=== PATIENT | male | born 1950 | race Caucasian/White ===

== ENCOUNTER 2017-06-09 16:09 | Inpatient (IN) | payer MEDICAID ==
[~2017-06-09] VITALS: Ht 165.1 cm; Wt 58.5 kg
[2017-06-09] MEDS ORDERED: PROP20TA18 PO (16:20)
[2017-06-09] MEDS ORDERED: PROZ10 PO (16:20)
[2017-06-09 16:53] LABS: AMPHET/METH SCREEN,URINE NEGATIVE (NEGATIVE); BARBITURATE SCREEN, URINE NEGATIVE (NEGATIVE); BENZODIAZEPINES SCREEN,URINE NEGATIVE (NEGATIVE); CANNABINOID SCREEN,URINE POSITIVE (NEGATIVE); COCAINE SCREEN,URINE NEGATIVE (NEGATIVE); METHADONE SCREEN, URINE NEGATIVE (NEGATIVE); OPIATE SCREEN,URINE NEGATIVE (NEGATIVE)
[2017-06-09 16:58] LABS: PHENCYCLIDINE SCREEN,URINE NEGATIVE (NEGATIVE)
[2017-06-09 17:00] LABS: BASOPHILS % (AUTO) 0.6 % (0.0-2.0); EOSINOPHILS % (AUTO) 2.3 % (1.0-6.0); HEMATOCRIT 42.9 % (41-53); HEMOGLOBIN 14.5 g/dL (13.5-17.5); LYMPHOCYTES # (AUTO) 2.3 K/uL (1.0-4.8); LYMPHOCYTES % (AUTO) 20.4 % (22.0-44.0); MEAN CORPUSCULAR HEMOGLOBIN 32.6 pg (26.0-34.0); MEAN CORPUSCULAR HGB CONC 33.8 G/dL (31.0-37.0); MEAN CORPUSCULAR VOLUME 96 fL (80-100); MONOCYTES # (AUTO) 1.1 K/uL (0.1-1.0); MONOCYTES % (AUTO) 9.3 % (2.0-9.0); NEUTROPHILS # (AUTO) 7.7 K/uL (1.8-7.7); NEUTROPHILS % (AUTO) 67.4 % (40.0-70.0); PLATELET COUNT (AUTO) 460 K/uL (150-450); RED BLOOD CELL COUNT(AUTO) 4.46 MIL/uL (4.50-5.90); RED CELL DISTRIBUTION WIDTH 13.2 % (11.5-14.5)
[2017-06-09 17:09] LABS: ANION GAP 10 mmol/L (8-16); CARBON DIOXIDE 29 mmol/L (22-29); CHLORIDE 99 mmol/L (98-107); CREATININE 0.85 mg/dL (0.60-1.30); GLOMERULAR FILTR. RATE CALC > 60 mL/min (>60); GLUCOSE,RANDOM 95 mg/dL (70-110); POTASSIUM 4.6 mmol/L (3.5-5.1); SODIUM SERUM 138 mmol/L (136-145); UREA NITROGEN, BLOOD 16 mg/dL (7-18)
[2017-06-09 17:15] LABS: ALANINE AMINOTRANSFERASE 32 U/L (12-78); ALBUMIN 3.7 g/dL (3.4-5.0); ALKALINE PHOSPHATASE 101 U/L (46-116); ASPARTATE AMINOTRANSFERASE 15 U/L (15-37); BILIRUBIN,TOTAL 0.4 mg/dL (0.1-1.0); TOTAL PROTEIN, SERUM 7.6 g/dL (6.4-8.2)
[2017-06-09] MEDS ORDERED: HALOPERIDOL 5 MG TABLET PO PRN (21:00)
[2017-06-09] MEDS ORDERED: ACETAMINOPHEN 500 MG TABLET PO ONE (22:00)
[2017-06-10 00:20] VITALS: BP 104/63
[2017-06-10] MEDS ORDERED: PNEUMOCOCCAL VACCINE POLYVALENT 0.5 ML VIAL [PPSV23] IM ONE (01:45)
[2017-06-10] MEDS ORDERED: INFLUENZA VIRUS VACCINE QVS 2017-18 (3YR+)/PF 60 MCG/0.5 ML SYRINGE IM ONE (01:45)
[2017-06-10 08:18] VITALS: BP 123/76
[2017-06-10 08:57] LABS: CHOL/HDL RATIO 2.3 (4.2-7.3)
[2017-06-10] MEDS ORDERED: MAGNESIUM HYDROXIDE SUSPENSION 30 ML UDCUP PO PRN (11:15)
[2017-06-10] MEDS ORDERED: TRIAMCINOLONE 0.1% 15 GM OINTMENT TP PRN (11:15)
[2017-06-10] MEDS ORDERED: PETROLATUM,WHITE 71 GM JELLY TP PRN (11:15)
[2017-06-10] MEDS ORDERED: BACITRACIN 28.4 GM OINTMENT TP PRN (11:15)
[2017-06-10] MEDS ORDERED: ACETAMINOPHEN 325 MG TABLET PO PRN (11:15)
[2017-06-10] MEDS ORDERED: CloNIDine HCL 0.1 MG TABLET PO PRN (11:15)
[2017-06-10] MEDS ORDERED: ONDANSETRON HCL 4 MG TABLET PO PRN (11:15)
[2017-06-10] MEDS ORDERED: ALBUTEROL SULFATE HFA 90 MCG/PUFF 8 GM INHALER IH PRN (11:15)
[2017-06-10] MEDS ORDERED: LOPERAMIDE HCL 2 MG CAPSULE PO PRN (11:15)
[2017-06-10] MEDS ORDERED: BENZOCAINE/MENTHOL LOZENGE MM PRN (11:15)
[2017-06-10] MEDS ORDERED: MAG HYDROX/AL HYDROX/SIMETH ES 30 ML SUSPENSION UDCUP PO PRN (11:15)
[2017-06-10 16:03] VITALS: BP 134/87
[2017-06-10 17:25] VITALS: BP 129/84
[2017-06-10] MEDS: LORazepam 2 MG TABLET PO PRN (17:28)
[2017-06-10] MEDS: IBUPROFEN 600 MG TABLET PO PRN (17:28)
[2017-06-10] MEDS: OLANZapine 5 MG TABLET PO SCH (20:11)
[2017-06-10] MEDS: ZOLPIDEM TARTRATE 10 MG TABLET PO PRN (20:13)
[2017-06-11 06:30] VITALS: BP 122/85
[2017-06-11 08:03] VITALS: BP 117/83
[2017-06-11] MEDS: FLUoxetine HCL 20 MG CAPSULE PO SCH (08:33)
[2017-06-11] MEDS: MULTIVITAMINS WITH MINERALS, THERAPEUTIC TABLET PO SCH (08:33)
[2017-06-11 12:33] VITALS: BP 112/77
[2017-06-11] MEDS: IBUPROFEN 600 MG TABLET PO PRN ×2 (12:35→22:04)
[2017-06-11 13:35] VITALS: BP 118/88
[2017-06-11 16:17] VITALS: BP 120/77
[2017-06-11] MEDS: OLANZapine 5 MG TABLET PO SCH (20:13)
[2017-06-11] MEDS: LORazepam 2 MG TABLET PO PRN (20:21)
[2017-06-11] MEDS: ZOLPIDEM TARTRATE 10 MG TABLET PO PRN (21:25)
[2017-06-11 22:06] VITALS: BP 133/85
[2017-06-12 01:09] VITALS: BP 120/61
[2017-06-12] MEDS: LORazepam 2 MG TABLET PO PRN ×2 (08:20→16:50)
[2017-06-12] MEDS: MULTIVITAMINS WITH MINERALS, THERAPEUTIC TABLET PO SCH (08:21)
[2017-06-12] MEDS: FLUoxetine HCL 20 MG CAPSULE PO SCH (08:21)
[2017-06-12 08:25] VITALS: BP 122/80
[2017-06-12 16:20] VITALS: BP 127/79
[2017-06-12 17:15] VITALS: BP 122/81
[2017-06-12] MEDS: IBUPROFEN 600 MG TABLET PO PRN (17:15)
[2017-06-12] MEDS: ZOLPIDEM TARTRATE 10 MG TABLET PO PRN (20:16)
[2017-06-12] MEDS: OLANZapine 10 MG TABLET PO SCH (20:16)
[2017-06-13 06:54] VITALS: BP 120/82
[2017-06-13 08:09] VITALS: BP 118/84
[2017-06-13] MEDS: MULTIVITAMINS WITH MINERALS, THERAPEUTIC TABLET PO SCH (08:21)
[2017-06-13] MEDS: FLUoxetine HCL 20 MG CAPSULE PO SCH (08:21)
[2017-06-13] MEDS: LORazepam 2 MG TABLET PO PRN (08:21)
[2017-06-13] MEDS: IBUPROFEN 600 MG TABLET PO PRN (13:14)
[2017-06-13 16:12] VITALS: BP 110/76
[2017-06-13] MEDS: OLANZapine 10 MG TABLET PO SCH (20:25)
[2017-06-14 05:46] VITALS: BP 134/89
[2017-06-14] MEDS: MULTIVITAMINS WITH MINERALS, THERAPEUTIC TABLET PO SCH (08:04)
[2017-06-14] MEDS: CHOLECALCIFEROL (VIT D3) 1,000 UNITS TABLET PO SCH (08:04)
[2017-06-14] MEDS: FLUoxetine HCL 20 MG CAPSULE PO SCH (08:04)
[2017-06-14 08:18] VITALS: BP 123/73
[2017-06-14] MEDS: LORazepam 2 MG TABLET PO PRN (10:01)
[2017-06-14 15:49] VITALS: BP 115/60
[2017-06-14] MEDS: IBUPROFEN 600 MG TABLET PO PRN (15:49)
[2017-06-14] MEDS: OLANZapine 10 MG TABLET PO SCH (20:27)
[2017-06-14] MEDS: ZOLPIDEM TARTRATE 10 MG TABLET PO PRN (20:28)
[2017-06-15] MEDS ORDERED: OLAN10TA3 PO (04:34)
[2017-06-15] MEDS ORDERED: ASPI81 PO (04:34)
[2017-06-15] MEDS ORDERED: VITAD1000 PO (04:34)
[2017-06-15] MEDS ORDERED: MULT-1239 PO (04:34)
[2017-06-15 05:59] VITALS: BP 116/81
[2017-06-15] MEDS: ASPIRIN 81 MG EC TABLET PO SCH (08:06)
[2017-06-15] MEDS: LORazepam 2 MG TABLET PO PRN ×2 (08:06→16:30)
[2017-06-15] MEDS: MULTIVITAMINS WITH MINERALS, THERAPEUTIC TABLET PO SCH (08:06)
[2017-06-15] MEDS: CHOLECALCIFEROL (VIT D3) 1,000 UNITS TABLET PO SCH (08:06)
[2017-06-15] MEDS: FLUoxetine HCL 20 MG CAPSULE PO SCH (08:06)
[2017-06-15 08:20] VITALS: BP 112/82
[2017-06-15 09:52] LABS: HEMATOCRIT 39.5 % (41-53); HEMOGLOBIN 13.5 g/dL (13.5-17.5); MEAN CORPUSCULAR HEMOGLOBIN 33.3 pg (26.0-34.0); MEAN CORPUSCULAR HGB CONC 34.1 G/dL (31.0-37.0); MEAN CORPUSCULAR VOLUME 98 fL (80-100); PLATELET COUNT (AUTO) 368 K/uL (150-450); RED BLOOD CELL COUNT(AUTO) 4.04 MIL/uL (4.50-5.90); RED CELL DISTRIBUTION WIDTH 13.2 % (11.5-14.5)
[2017-06-15 10:13] LABS: ANION GAP 10 mmol/L (8-16); CALCIUM, TOTAL 8.4 mg/dL (8.8-10.5); CARBON DIOXIDE 27 mmol/L (22-29); CHLORIDE 103 mmol/L (98-107); CREATININE 0.82 mg/dL (0.60-1.30); GLOMERULAR FILTR. RATE CALC > 60 mL/min (>60); GLUCOSE,RANDOM 180 mg/dL (70-110); PHOSPHORUS 2.9 mg/dL (2.5-4.9); POTASSIUM 4.1 mmol/L (3.5-5.1); SODIUM SERUM 140 mmol/L (136-145); UREA NITROGEN, BLOOD 21 mg/dL (7-18)
[2017-06-15 10:48] LABS: BAND NEUTROPHILS % (MANUAL) 2 % (0-5); LYMPHOCYTES % (MANUAL) 24 % (22-44); MONOCYTES % (MANUAL) 1 % (2-9); SEGMENTED NEUTROPHILS % 73 % (40-70)
[2017-06-15 16:18] VITALS: BP 122/84
[2017-06-15] MEDS: OLANZapine 10 MG TABLET PO SCH (20:14)
[2017-06-15] MEDS: ZOLPIDEM TARTRATE 10 MG TABLET PO PRN (21:07)
[2017-06-16 06:07] VITALS: BP 121/84
[2017-06-16] MEDS: IBUPROFEN 600 MG TABLET PO PRN (06:12)
[2017-06-16 08:00] VITALS: BP 117/77
[2017-06-16] MEDS: CHOLECALCIFEROL (VIT D3) 1,000 UNITS TABLET PO SCH (08:14)
[2017-06-16] MEDS: MULTIVITAMINS WITH MINERALS, THERAPEUTIC TABLET PO SCH (08:14)
[2017-06-16] MEDS: FLUoxetine HCL 20 MG CAPSULE PO SCH (08:14)
[2017-06-16] MEDS: ASPIRIN 81 MG EC TABLET PO SCH (08:15)
[2017-06-16] MEDS ORDERED: FLUO-191 PO (08:19)
== END 2017-06-16 09:50 | disposition home or self-care (01) | DRG 753 ==
LOC: EMS 16:10 → B2S 21:30
DX: F31.5 Bipolar disorder, current episode depressed, severe, with psychotic features (principal); R45.851 Suicidal ideations; I10 Essential (primary) hypertension; D72.829 Elevated white blood cell count, unspecified; F12.90 Cannabis use, unspecified, uncomplicated; F17.200 Nicotine dependence, unspecified, uncomplicated; F41.9 Anxiety disorder, unspecified; G47.00 Insomnia, unspecified; J44.9 Chronic obstructive pulmonary disease, unspecified; K21.9 Gastro-esophageal reflux disease without esophagitis; L30.9 Dermatitis, unspecified; E55.9 Vitamin D deficiency, unspecified; Z71.9 Counseling, unspecified; Z59.0 Homelessness; Z79.899 Other long term (current) drug therapy
CPT/HCPCS: 80074; 82306; 83735; 84100; 84443; 85007; 99285; G0480